=== PATIENT | female | born 1985 | race Two or more races ===

== ENCOUNTER → 2024-08-03 | Outpatient (CLI) | payer BC, MEDICAID, SELFPAY ==
[2024-08-03 10:40] LABS: Alanine Aminotransferase 88 U/L (10-49); Albumin, Serum 4.4 gm/dL (3.5-5.0); Alkaline Phosphatase 105 U/L (46-116); Bilirubin,Direct < 0.1 mg/dL (0.0-0.3); Bilirubin,Total 0.3 mg/dL (0.3-1.2); Cardiac Risk Estimate 7.5 RATIO (3.7-5.6); Cholesterol 217 mg/dL (132-200); HDL Cholesterol 29 mg/dL (40-60); Total Protein 6.9 gm/dL (5.7-8.2); Triglycerides 729 mg/dL (30-150)
[2024-08-03 10:53] LABS: Glucose Estimated Average 123 mg/dL (80-131); Hemoglobin A1C 5.9 % Hgb (4.8-6.0)
[2024-08-03 11:25] LABS: Hepatitis A Antibody IgM Non Reactive (Non React); Hepatitis B Core Antibody IgM Non Reactive (Non React); Hepatitis B Surface Antigen Non Reactive (Non React); Hepatitis C Antibody Non Reactive (Non React)
== END | disposition home or self-care (01) ==
LOC: COPL 09:02
PROVIDERS: PCP Family Medicine; Referring Provider Family Medicine; Visit Provider Family Medicine
DX: R74.01 Elevation of levels of liver transaminase levels (principal)
CPT/HCPCS: 36415; 80061; 80074; 80076; 83036

== ENCOUNTER → 2024-12-18 | Outpatient (CLI) | payer BC, MEDICAID, SELFPAY ==
[2024-12-18 09:18] LABS: Alanine Aminotransferase 73 U/L (10-49); Albumin, Serum 4.7 gm/dL (3.5-5.0); Alkaline Phosphatase 98 U/L (46-116); Aspartate Amino Transferase 63 U/L (0-34); Bilirubin,Direct 0.1 mg/dL (0.0-0.3); Bilirubin,Total 0.3 mg/dL (0.3-1.2); Cardiac Risk Estimate 3.8 RATIO (3.7-5.6); Cholesterol 142 mg/dL (132-200); HDL Cholesterol 37 mg/dL (40-60); LDL Cholesterol,Calculated 65 mg/dL (0-130); Total Protein 6.8 gm/dL (5.7-8.2); Triglycerides 202 mg/dL (30-150)
== END | disposition home or self-care (01) ==
PROVIDERS: PCP Family Medicine; Referring Provider Family Medicine; Visit Provider Family Medicine
DX: E78.2 Mixed hyperlipidemia (principal)
CPT/HCPCS: 36415; 80061; 80074; 80076